=== PATIENT | male | born 1955 | race Asian ===

== ENCOUNTER 2023-03-29 11:48 | Inpatient (IN) | payer MEDICARE ==
[2023-03-28 11:45] LABS: BASOPHILS % (AUTO) 0.4 % (0-1); EOSINOPHILS # (AUTO) 0.4 X10'3 (0-0.9); EOSINOPHILS % (AUTO) 5.6 % (0-6); LYMPHOCYTES # (AUTO) 0.9 X10'3 (1.1-4.8); MEAN CORPUSCULAR HEMOGLOBIN 28.8 PG (27.0-31.0); MEAN CORPUSCULAR HGB CONC 33.3 g/dL (33.0-36.5); MEAN CORPUSCULAR VOLUME 86.5 FL (78-98); MEAN PLATELET VOLUME 7.3 FL (7.4-10.4); MONOCYTES # (AUTO) 0.5 X10'3 (0-0.9); MONOCYTES % (AUTO) 8.1 % (2-12); NEUTROPHILS # (AUTO) 4.8 X10'3 (1.8-7.7); NEUTROPHILS % (AUTO) 71.9 % (42-75); PRE OP HEMATOCRIT 49.6 % (42.0-52.0); PRE OP HEMOGLOBIN 16.5 g/dL (14.0-17.9); PRE OP PLATELET COUNT 192 X10'3 (140-440); RED BLOOD COUNT 5.74 X10'6 (4.70-6.10); RED CELL DISTRIBUTION WIDTH 15.9 % (11.5-14.5)
[2023-03-28 11:55] LABS: ALBUMIN 3.9 G/DL (3.4-5.0); ALBUMIN/GLOBULIN RATIO 1.1 (1.1-1.5); ALKALINE PHOSPHATASE 76 IU/L (46-116); BLOOD UREA NITROGEN 14 MG/DL (7-18); BUN/CREATININE RATIO 14.1 (10.0-20.0); CALCIUM 8.7 MG/DL (8.5-10.1); CHLORIDE 103 MMOL/L (99-107); CREATININE 0.99 MG/DL (0.60-1.10); PRE OP ALT 46 U/L (30-65); PRE OP ANION GAP 7 (8-16); PRE OP AST 22 U/L (10-37); PRE OP BILIRUB, TOTAL 0.5 MG/DL (0.0-1.0); PRE OP GLUCOSE 116 MG/DL (70-104); PRE OP POTASSIUM 4.2 MMOL/L (3.4-5.1); PRE OP SODIUM 141 MMOL/L (135-145); TOTAL CARBON DIOXIDE 31.4 MMOL/L (24-32); TOTAL PROTEIN 7.4 G/DL (6.4-8.2); eGFR 76 ML/MIN
[~2023-03-29] VITALS: Ht 180.3 cm; Wt 72.6 kg
[2023-03-29] VITALS (17 sets, daily range): BP systolic 124–156; BP diastolic 72–94
[~2023-03-29 11:48] MED LIST: ASPI-1071 PO; ATOR10TA70 PO; FINA5TAB11 PO; FLO0.4C PO; LISI1TAB49 PO; MULT-1085 PO; MV-M1CAP18 PO; ceFOXitin 2GM-NS 100mL ADDvant 100 ML IV ONE; famotidine 20mg tablet PO ONE; ringers solution, lacted 1,000 ML IV SCH
[2023-03-29] MEDS ORDERED: BUPIVAcaine/PF 2.5 mg/ml (0.25%) 30ml vial ONE (13:23)
[2023-03-29] MEDS ORDERED: LIDOcaine 1% 30ml preserv. free vial ONE (13:23)
[2023-03-29] MEDS ORDERED: sevoflurane 250ml liquid IH ONE (13:40)
[2023-03-29] MEDS ORDERED: ePHEDrine 50MG/ML INJ. ONE (13:40)
[2023-03-29] MEDS ORDERED: midazolam 1 mg/ML 2ml injection ONE (13:41)
[2023-03-29] MEDS ORDERED: fentaNYL /PF 50mcg/ml 5ml ampule ONE (13:41)
[2023-03-29] MEDS ORDERED: morphine 2 MG/ML inj. syringe IV PRN (14:00)
[2023-03-29] MEDS ORDERED: proCHLORperazine 10 MG/2 ml inj IV PRN (14:00)
[2023-03-29] MEDS ORDERED: meperidine/PF 25mg/ml syringe IV PRN ×3 (14:00)
[2023-03-29] MEDS ORDERED: morphine 4 MG/ML inj SYRINge IV PRN (14:00)
[2023-03-29] MEDS ORDERED: ondansetron/PF 4mg/2ml inj IV PRN ×2 (14:00→16:55)
[2023-03-29] MEDS ORDERED: ringers solution, lacted 1,000 ML IV SCH (14:00)
[2023-03-29] MEDS ORDERED: INDOCYANINE GREEN 25 MG/10 ML VIAL IV ONE (14:26)
[2023-03-29] MEDS ORDERED: ondansetron/PF 4mg/2ml inj ONE (16:30)
[2023-03-29] MEDS ORDERED: glycopyrrolate 0.2mg/ml inj ONE (16:30)
[2023-03-29] MEDS ORDERED: LIDOcaine 2% (20mg/ml) 5ml vial ONE (16:30)
[2023-03-29] MEDS ORDERED: rocuronium 10mg/ml inj IV ONE (16:30)
[2023-03-29] MEDS ORDERED: propofol inj 20 ML IV ONE (16:30)
[2023-03-29] MEDS ORDERED: dexamethasone sod phosphate 4mg/ml inj. ONE (16:30)
[2023-03-29] MEDS ORDERED: neostigmine methylsulfate 1 MG/ML 10ml vial ONE (16:30)
--- NOTE | 2023-03-29 16:43 | NUR ---
Received from OR via , accompanied by Anesthesiologist DR OLMEDO and report given by Anesthesiolgist. VSS. IV IN L HAND 20G INTACT. LR RUNNING AT 100ML/HR. F/C. LAP SITES X 3 ON LEFT LATERAL ABD. ONE SMALL BANDAGE UNDER 3 LAP SITES. Addendum: 03/29/23 at 1707 by Quynh Quijano RN Amended: Links added.
[2023-03-29] MEDS ORDERED: HYDROcodone/acetaminophen 5mg/325mg tablet PO PRN (16:55)
[2023-03-29] MEDS ORDERED: naloxone 0.4 mg/ml inj IV PRN (16:55)
--- NOTE | 2023-03-29 17:58 | NUR ---
received report from lakeshia obando
--- NOTE | 2023-03-29 18:07 | NUR ---
PATIENT JUST ARRIVED ON FLOOR, PASSING OFF CARE TO RELAY CHECKER
--- NOTE | 2023-03-29 18:12 | NUR ---
PATIENT MEETS DISCHARGE CRITERIA. VSS. ON ROOM AIR. IV INTACT. LR RUNNING AT 100ML/HR. GAVE REPORT TO LAURA VALDEZ. TOOK PATIENT TO THE FLOOR. STARTED V/S AND LOWERED AND LOCKED THE BED Addendum: 03/29/23 at 1814 by Quynh Quijano RN Amended: Links added.
--- NOTE | 2023-03-29 18:18 | NUR ---
gave report to lakeshia mitchell
[2023-03-29] MEDS: acetaminophen 325mg tablet PO SCH (21:03)
[2023-03-29] MEDS: ketorolac trometh. 30mg/ml inj. IV SCH (23:53)
[2023-03-30] MEDS: acetaminophen 325mg tablet PO SCH ×4 (02:18→20:05)
--- NOTE | 2023-03-30 05:37 | NUR ---
Berg catheter madalyn'macho. AM RN's will continue monitoring for urine output.
[2023-03-30 06:00] VITALS: BP 125/80
--- NOTE | 2023-03-30 06:24 | NUR ---
Report given to Tori Delgado RN. Patient walking in hallway doing well, no current complaints.
[2023-03-30 06:25] LABS: BASOPHILS % (AUTO) 0 % (0-1); EOSINOPHILS % (AUTO) 0 % (0-6); HEMATOCRIT 43.2 % (42.0-52.0); HEMOGLOBIN 14.3 g/dl (14.0-17.9); LYMPHOCYTES # (AUTO) 0.7 X10'3 (1.1-4.8); LYMPHOCYTES % (AUTO) 5.6 % (21-51); MEAN CORPUSCULAR HEMOGLOBIN 28.8 PG (27.0-31.0); MEAN CORPUSCULAR HGB CONC 33.1 g/dL (33.0-36.5); MEAN CORPUSCULAR VOLUME 87.1 FL (78-98); MEAN PLATELET VOLUME 7.6 FL (7.4-10.4); MONOCYTES # (AUTO) 1.2 X10'3 (0-0.9); MONOCYTES % (AUTO) 9.3 % (2-12); NEUTROPHILS # (AUTO) 11.2 X10'3 (1.8-7.7); NEUTROPHILS % (AUTO) 85.1 % (42-75); PLATELET COUNT 171 X10'3 (140-440); RED BLOOD COUNT 4.96 X10'6 (4.70-6.10); RED CELL DISTRIBUTION WIDTH 16.2 % (11.5-14.5); WHITE BLOOD COUNT 13.1 X10'3 (4.5-11.0)
--- NOTE | 2023-03-30 06:25 | NUR ---
Patient in room ORTHO 4008. I have received report from Tori Wilcox and had the opportunity to ask questions and assume patient care.
--- NOTE | 2023-03-30 07:15 | NUR ---
Patient in room ORTHO 4008. I have received report from Tori Tapia RN and had the opportunity to ask questions and assume patient care.
--- NOTE | 2023-03-30 07:16 | NUR ---
Problems reprioritized. Patient report given, questions answered & plan of care reviewed with Chely.
[2023-03-30 07:32] LABS: ALBUMIN 3.1 G/DL (3.4-5.0); ANION GAP 9 (8-16); BLOOD UREA NITROGEN 18 MG/DL (7-18); BUN/CREATININE RATIO 15.3 (10.0-20.0); CALCIUM 8.2 MG/DL (8.5-10.1); CHLORIDE 101 MMOL/L (99-107); CREATININE 1.18 MG/DL (0.60-1.10); GLUCOSE 107 MG/DL (70-104); POTASSIUM 4.2 MMOL/L (3.5-5.1); SODIUM 137 MMOL/L (135-145); TOTAL CARBON DIOXIDE 27.4 MMOL/L (24-32); eGFR 62 ML/MIN
[2023-03-30] MEDS: ketorolac trometh. 30mg/ml inj. IV SCH ×2 (08:07→16:08)
[2023-03-30] MEDS: enoxaparin 40mg/0.4ml syringe SQ SCH (09:39)
[2023-03-30] MEDS ORDERED: ringers solution, lacted 1,000 ML IV SCH (09:45)
[2023-03-30 10:00] VITALS: BP 148/89
--- NOTE | 2023-03-30 11:00 | NUR ---
spoke with Dr. Kwong and he stated that if patient tolerates diets well then he can go home today.
[2023-03-30] MEDS: HYDROchlorothiazide 12.5mg capsule PO SCH (14:08)
[2023-03-30] MEDS: finasteride 5mg tablet PO SCH (14:08)
[2023-03-30] MEDS: lisinopril 10 MG tablet PO SCH (14:09)
[2023-03-30] MEDS: tamsulosin 0.4mg capsule PO SCH (14:09)
[2023-03-30] MEDS: multivitamins, therapeutics tablet PO SCH (14:09)
[2023-03-30] MEDS: aspirin 81mg, enteric-coated 1 TAB TABLET.DR PO SCH (14:09)
--- NOTE | 2023-03-30 14:30 | NUR ---
spoke with Dr. Kwong and advised him that the patient is tolerating diets well, has flatus and 3 BM. However patient is wanting to stay another night just to be on the safe side. okayed patient to stay another night.
--- NOTE | 2023-03-30 16:00 | NUR ---
I have reviewed and agree with interventions, assessments, and documentation by Chely Troy LVN.
[2023-03-30 18:00] VITALS: BP 122/84
--- NOTE | 2023-03-30 18:18 | NUR ---
Problems reprioritized. Patient report given, questions answered & plan of care reviewed with Lizet SANCHEZ.
--- NOTE | 2023-03-30 18:20 | NUR ---
Patient in room ORTHO 4008. I have received report from SARABJIT Mo and had the opportunity to ask questions and assume patient care.
[2023-03-30] MEDS ORDERED: atorvastatin 10mg tablet PO SCH (21:00)
[2023-03-30 22:00] VITALS: BP 124/80
[2023-03-31] MEDS: ketorolac trometh. 30mg/ml inj. IV SCH ×2 (00:13→08:56)
[2023-03-31] MEDS: acetaminophen 325mg tablet PO SCH ×2 (02:12→08:50)
[2023-03-31 06:00] VITALS: BP 128/81
[2023-03-31 06:20] LABS: BASOPHILS % (AUTO) 0.2 % (0-1); EOSINOPHILS # (AUTO) 0.2 X10'3 (0-0.9); EOSINOPHILS % (AUTO) 1.8 % (0-6); HEMATOCRIT 39.7 % (42.0-52.0); HEMOGLOBIN 13.1 g/dl (14.0-17.9); LYMPHOCYTES # (AUTO) 0.9 X10'3 (1.1-4.8); LYMPHOCYTES % (AUTO) 9.7 % (21-51); MEAN CORPUSCULAR HEMOGLOBIN 28.9 PG (27.0-31.0); MEAN CORPUSCULAR HGB CONC 32.9 g/dL (33.0-36.5); MEAN PLATELET VOLUME 7.5 FL (7.4-10.4); MONOCYTES # (AUTO) 0.7 X10'3 (0-0.9); NEUTROPHILS # (AUTO) 7.5 X10'3 (1.8-7.7); NEUTROPHILS % (AUTO) 80.3 % (42-75); PLATELET COUNT 151 X10'3 (140-440); RED BLOOD COUNT 4.52 X10'6 (4.70-6.10); RED CELL DISTRIBUTION WIDTH 16.1 % (11.5-14.5); WHITE BLOOD COUNT 9.4 X10'3 (4.5-11.0)
--- NOTE | 2023-03-31 06:20 | NUR ---
Patient in room ORTHO 4008. I have received report from Lizet SANCHEZ and had the opportunity to ask questions and assume patient care.
[2023-03-31 06:23] LABS: ALBUMIN 2.8 G/DL (3.4-5.0); ANION GAP 10 (8-16); BLOOD UREA NITROGEN 15 MG/DL (7-18); BUN/CREATININE RATIO 17.6 (10.0-20.0); CHLORIDE 105 MMOL/L (99-107); CREATININE 0.85 MG/DL (0.60-1.10); GLUCOSE 92 MG/DL (70-104); POTASSIUM 4.1 MMOL/L (3.5-5.1); SODIUM 139 MMOL/L (135-145); TOTAL CARBON DIOXIDE 23.8 MMOL/L (24-32); eGFR 90 ML/MIN
--- NOTE | 2023-03-31 06:37 | NUR ---
Problems reprioritized. Patient report given, questions answered & plan of care reviewed with SARABJIT Mo.
[2023-03-31] MEDS: finasteride 5mg tablet PO SCH (08:50)
[2023-03-31] MEDS: aspirin 81mg, enteric-coated 1 TAB TABLET.DR PO SCH (08:50)
[2023-03-31] MEDS: tamsulosin 0.4mg capsule PO SCH (08:50)
[2023-03-31] MEDS: enoxaparin 40mg/0.4ml syringe SQ SCH (08:50)
[2023-03-31] MEDS: multivitamins, therapeutics tablet PO SCH (08:50)
[2023-03-31] MEDS: HYDROchlorothiazide 12.5mg capsule PO SCH (08:51)
[2023-03-31] MEDS: lisinopril 10 MG tablet PO SCH (08:51)
[2023-03-31 10:00] VITALS: BP 128/85
[2023-03-31] MEDS ORDERED: IBUP-1984 PO (11:44)
[2023-03-31] MEDS ORDERED: ACET-1008 PO (11:44)
--- NOTE | 2023-03-31 13:30 | NUR ---
Patient discharged home today. All discharge instructions were explained to patient and spouse. All questions were answered. IV removed by RN. Patient alert and appropriate. Patient dressed himself and gathered all belongings. Patient was wheeled downstairs and into private vehicle.
--- NOTE | 2023-03-31 15:02 | NUR ---
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
== END 2023-03-31 13:30 | disposition home or self-care (01) | DRG 331 ==
LOC: PAS IN 11:48 → ORTHO 4S 18:15
PROVIDERS: ADMIT Surgery; ATTEND Surgery
PROC: 8E0W4CZ Robotic Assisted Procedure of Trunk Region, Percutaneous Endoscopic Approach (ICD-10-PCS; 2023-03-29)
PROC: B4151ZZ Fluoroscopy of Inferior Mesenteric Artery using Low Osmolar Contrast (ICD-10-PCS; 2023-03-29)
PROC: 0DTF4ZZ Resection of Right Large Intestine, Percutaneous Endoscopic Approach (ICD-10-PCS; principal; 2023-03-29 13:40)
DX: C18.9 Malignant neoplasm of colon, unspecified (principal); Z79.899 Other long term (current) drug therapy; Z79.82 Long term (current) use of aspirin
CPT/HCPCS: 36415; 80048; 80053; 82948; 85025; 86885; 86900; 86901; 87081; A4215; A4618; C1758; G0378; J0694; J1100; J1650; J1885; J2250; J2405; J2704; J2710; J3010; J3490; J7120